=== PATIENT | male | born 1975 | race Caucasian/White ===

== ENCOUNTER 2024-03-11 08:13 | Outpatient (CLI) | payer BC, SELFPAY ==
--- NOTE | ~2024-03-11 | US_ITS ---
US right upper quadrant INDICATION: Elevated liver enzymes. PROCEDURE: Realtime right upper abdominal ultrasound. COMPARISON: No prior studies for comparison. FINDINGS: The pancreas is normal without focal mass or pancreatic ductal dilation. Fatty .infiltrati on of the liver. There is normal directional flow in the portal vein. The gallbladder is normal without stones, gallbladder wall thickening or pericholecystic fluid. Comm on bile duct measures 5. mm. No sonographic Niño's sign. IMPRESSION: 1: Fatty infiltration of the liver. Reviewed, dictated and finalized at location B.
--- NOTE | ~2024-03-11 | US_ITS ---
EXAMINATION: US soft tissue abdomen DATE: 03/11/2024 09:03 INDICATION: Hernia of right anterior abdominal wall. TECHNIQUE: Multiple grayscale and Doppler ultrasound images of the abdomen were obtained. COMPARISON: None FINDINGS: There is no abnormal mass or hernia in the abdominal wall in the patient's areas of concern . IMPRESSION: 1. No abnormal mass or hernia in the abdominal wall in the patient's areas of concern. Reviewed, dictated and finalized at location A. IMPRESSION: 1. No abnormal mass or hernia in the abdominal wall in the patient's areas of c oncern.
== END 2024-03-11 08:14 | disposition home or self-care (01) ==
PROVIDERS: PCP Physician Assistant; Visit Provider Physician Assistant
DX: R74.01 Elevation of levels of liver transaminase levels (principal); K76.0 Fatty (change of) liver, not elsewhere classified
CPT/HCPCS: 76705